=== PATIENT | male | born 1980 | race Two or more races ===

== ENCOUNTER 2021-11-17 13:36 | Emergency (ER) | payer MEDICAID, OTHER ==
[~2021-11-17] VITALS: Ht 175.3 cm; Wt 80.0 kg
[2021-11-17 16:13] LABS: Basophils # (auto) 0 10 ^3/uL (0-0.2); Basophils % (auto) 0.2 % (0.0-2.0); Eosinophils # (auto) 0.1 10 ^3/uL (0-0.8); Eosinophils % (auto) 1.8 % (0.0-7.0); Hematocrit 43.8 % (41.0-53.0); Hemoglobin 14.6 g/dL (13.5-17.5); Lymphocytes # (auto) 1.8 10 ^3/uL (0.4-5.4); Lymphocytes % (auto) 37.8 % (10.0-50.0); Mean Corpuscular Hemoglobin 30.2 pg (28.0-32.0); Mean Corpuscular Hgb Conc. 33.3 g/dL (32.0-36.0); Mean Corpuscular Volume 90.7 fL (80.0-100.0); Monocytes # (auto) 0.4 10 ^3/uL (0-1.3); Monocytes % (auto) 7.9 % (0.0-12.0); Neutrophils # (auto) 2.6 10 ^3/uL (1.6-8.6); Neutrophils % (auto) 52.3 % (37.0-80.0); Nucleated Red Blood Cells % 0.1 %; Red Blood Cells 4.83 10^6/uL (4.5-5.90); Red Cell Distribution Width 12.9 % (11.8-14.3); White Blood Cell 4.9 10^3/uL (4.4-10.8)
[2021-11-17 16:26] LABS: Albumin 4.1 g/dL (3.4-5.0); Calcium 8.4 mg/dL (8.5-10.1); Potassium 4.1 mmol/L (3.5-5.1)
[2021-11-17 16:30] LABS: BUN/Creatinine Ratio 12.4; Bilirubin, Total 0.4 mg/dL (0.2-1.0); Total Protein 7.8 g/dL (6.4-8.2)
[2021-11-17] MEDS ORDERED: FAMO20TA10 PO (20:00)
[2021-11-18 00:40] VITALS: BP 111/77
== END 2021-11-18 00:49 | disposition home or self-care (01) ==
LOC: ER 13:36
DX: K21.9 Gastro-esophageal reflux disease without esophagitis (principal)
CPT/HCPCS: 36415; 74176; 80053; 85025; 93005